=== PATIENT | female | born 1960 | race American Indian/Alaskan Native ===

== ENCOUNTER 2020-12-12 19:15 | Emergency (ER) | payer BC | END 2020-12-13 00:26 | disposition left against medical advice (07) | LOC: ED 19:15 | DX: S05.91XA Unspecified injury of right eye and orbit, initial encounter (principal); Z53.21 Procedure and treatment not carried out due to patient leaving prior to being seen by health care provider ==

== ENCOUNTER 2022-02-07 09:19 | Emergency (ER) | payer BC ==
--- NOTE | 2022-02-07 09:46 | Event Note ---
ED Screening Note Date of service: 02/07/22 Time: 09:40 ED Screening Note: This initial assessment/diagnostic orders/clinical plan/treatment(s) is/are subject to change based on patients health status, clinical progression and re- assessment by fellow clinical providers in the ED. Further treatment and workup at subsequent clinical providers discretion. Patient/guardian urged not to elope from the ED as their condition may be serious if not clinically assessed and managed. Patient found by granddaughter this morning on floor next to bed with bloodall over her head. Last seen yesterday morning. Hematoma right frontal and finger laceration. Initial orders include: My Active Orders 02/07/22 09:39 EKG (12 lead) Stat CT head/brain wo con Stat Complete Blood Count Auto Diff Stat Comprehensive Metabolic Panel Stat Drugs of Abuse Panel, Urine Stat Troponin T Stat 02/07/22 09:40 Tech to do EKG .once
--- NOTE | 2022-02-07 10:02 | Emergency Department Report ---
ED Fall HPI - General Chief Complaint: Head Injury Stated Complaint: HEAD INJURY / PSYCH EPISODE Time Seen by Provider: 02/07/22 09:50 Source: patient Mode of arrival: Ambulatory - History of Present Illness Initial Comments: 62-year-old -[place] he female with no significant past medical history reportedly fell this morning. Patient does not remember falling but blood was noted in her room in the bathroom. Patient unclear if she had any head trauma patient complains of left finger injury. MD Complaint: fall -: Sudden Fall From: standing When Fall Occurred: 1-3 hours LEAD [employer] Fall Witnessed: no Place Fall Occurred: home Loss of Consciousness: unsure Prolonged Down Time?: unclear Symptoms Prior to Fall: none Location - Extremities: Right: Hand Quality: sharp Context: alcohol use - Related Data Home Medications Medication Instructions Recorded Confirmed Last Taken Levothyroxine [Synthroid] 125 mcg PO QAM 02/15/15 04/06/20 04/05/20 09:00 atenoloL [Tenormin] 25 mg PO DAILY 02/15/15 04/06/20 04/05/20 09:00 cloNIDine [Catapres] 0.1 mg PO QHS 02/15/15 04/06/20 04/04/20 21:00 Previous Rx's Medication Instructions Recorded Last Taken Type Aspirin EC [Halfprin EC] 81 mg PO QDAY #30 tablet 04/08/20 Unknown Rx ISOSORBIDE MONOnitrate [Imdur ER] 30 mg PO QDAY #30 tablet 04/08/20 Unknown Rx Pravastatin [Pravachol] 40 mg PO QHS #30 tablet 04/08/20 Unknown Rx atenoloL [Tenormin] 50 mg PO QDAY #30 tablet 04/08/20 Unknown Rx lisinopriL [Zestril TAB] 2.5 mg PO QDAY #30 tablet 04/08/20 Unknown Rx chlordiazePOXIDE [Librium] 25 mg PO DAILY #6 cap 02/07/22 Unknown Rx Allergies Allergy/AdvReac Type Severity Reaction Status Date / Time Penicillins Allergy Vomiting Verified 02/15/15 10:33 ED Review of Systems ROS: Stated complaint: HEAD INJURY / PSYCH EPISODE Other details as noted in HPI Constitutional: denies: chills, fever Eyes: denies: eye pain, eye discharge, vision change ENT: denies: ear pain, throat pain Respiratory: denies: cough, shortness of breath, wheezing Cardiovascular: denies: chest pain, palpitations Endocrine: no symptoms reported Gastrointestinal: denies: abdominal pain, nausea, diarrhea Genitourinary: denies: urgency, dysuria, discharge Musculoskeletal: denies: back pain, joint swelling, arthralgia Skin: denies: rash, lesions Neurological: denies: headache, weakness, paresthesias Psychiatric: denies: anxiety, depression Hematological/Lymphatic: denies: easy bleeding, easy bruising ED Past Medical Hx - Past Medical History Hx Hypertension: Yes Hx Congestive Heart Failure: No Hx Diabetes: No Hx Asthma: Yes Hx COPD: No - Surgical History Additional Surgical History: bilateral rotator cuffs. 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 - Social History Smoking Status: Never Smoker - Medications Home Medications: Home Medications Medication Instructions Recorded Confirmed Last Taken Type Levothyroxine [Synthroid] 125 mcg PO QAM 02/15/15 04/06/20 04/05/20 09:00 Hi story atenoloL [Tenormin] 25 mg PO DAILY 02/15/15 04/06/20 04/05/20 09:00 History cloNIDine [Catapres] 0.1 mg PO QHS 02/15/15 04/06/20 04/04/20 21:00 History Aspirin EC [Halfprin EC] 81 mg PO QDAY #30 tablet 04/08/20 Unknown Rx ISOSORBIDE MONOnitrate [Imdur ER] 30 mg PO QDAY #30 tablet 04/08/20 Unknown Rx Pravastatin [Pravachol] 40 mg PO QHS #30 tablet 04/08/20 Unknown Rx atenoloL [Tenormin] 50 mg PO QDAY #30 tablet 04/08/20 Unknown Rx lisinopriL [Zestril TAB] 2.5 mg PO QDAY #30 tablet 04/08/20 Unknown Rx chlordiazePOXIDE [Librium] 25 mg PO DAILY #6 cap 02/07/22 Unknown Rx ED Physical Exam - General Limitations: No Limitations General appearance: alert, in no apparent distress - Head Head exam: Present: atraumatic, normocephalic - Eye Eye exam: Present: normal appearance, PERRL - ENT ENT exam: Present: normal exam, normal orophraynx, mucous membranes moist - Neck Neck exam: Present: normal inspection - Respiratory Respiratory exam: Present: normal lung sounds bilaterally. Absent: respiratory distress - Cardiovascular Cardiovascular Exam: Present: regular rate, normal rhythm. Absent: systolic murmur, diastolic murmur, rubs, gallop - GI/Abdominal GI/Abdominal exam: Present: soft, normal bowel sounds. Absent: distended, tenderness, guarding - Extremities Exam Extremities exam: Present: normal inspection - Back Exam Back exam: Present: normal inspection - Neurological Exam Neurological exam: Present: alert, oriented X3 - Psychiatric Psychiatric exam: Present: normal affect, normal mood - Skin Skin exam: Present: warm, dry, intact, normal color. Absent: rash ED Course Vital Signs 02/07/22 02/07/22 02/07/22 08:14 09:32 10:41 Temperature 97.9 F Pulse Rate 106 H 89 Respiratory 16 18 Rate Blood Pressure 137/88 Blood Pressure 130/95 136/95 [Left] O2 Sat by Pulse 98 99 Oximetry 02/07/22 02/07/22 02/07/22 10:43 10:45 11:51 Temperature Pulse Rate 105 H 70 Respiratory 16 14 Rate Blood Pressure 110/84 136/95 136/95 Blood Pressure [Left] O2 Sat by Pulse 78 L 100 99 Oximetry 02/07/22 02/07/22 12:04 12:05 Temperature Pulse Rate 66 Respiratory 18 18 Rate Blood Pressure Blood Pressure 142/65 [Left] O2 Sat by Pulse 99 99 Oximetry ED Medical Decision Making - Lab Data Result diagrams: 02/07/22 10:11 02/07/22 10:11 - EKG Data Rate: normal - Medical Decision Making Patient is awake and alert and oriented x3. Suspicion is patient have alcohol withdrawal seizures and should be admitted to the hospital I have advised patient of that fact, patient states she wants to go home patient awake and aler t oriented x3. Advised patient she will sign against medical vice to go home. She understands risks that she may have additional seizures, head trauma, even . Critical care attestation.: If time is entered above; I have spent that time in minutes in the direct care o f this critically ill patient, excluding procedure time. ED Disposition Clinical Impression: Headache Alcohol withdrawal Qualifiers: Complication of substance-induced condition: with unspecified complication Qualified Code(s): F10.939 - Alcohol use, unspecified with withdrawal, u nspecified Disposition: 07 LEFT AGAINST MEDICAL ADVICE Is pt being admited?: No Does the pt Need Aspirin: No Condition: Stable Instructions: Alcohol Abuse and Nutrition, Alcohol Abuse and Dependence Information, Teen, Alcohol Withdrawal Syndrome, [id number] Prescriptions: chlordiazePOXIDE [Librium] 25 mg PO DAILY #6 cap
--- NOTE | 2022-02-07 10:20 | Cat Scan Report ---
CT HEAD WITHOUT CONTRAST INDICATION / CLINICAL INFORMATION: unexplained fall with head injury in elderly. TECHNIQUE: Axial imaging performed from the skull apex through the skull base without the use of cont rast. Sagittal and coronal reformatted images. All CT scans at this location are performed using CT dose reduction for ALARA by means of automated exposure control. COMPARISON: 02/15/2015 FINDINGS: CEREBRAL PARENCHYMA: No significant abnormality. No acute territorial infarct. HEMORRHAGE: None. EXTRA-AXIAL SPACES: Normal in size and morphology for the patient's age. VENTRICULAR SYSTEM: Normal in size and morphology for the patient's age. MIDLINE SHIFT OR HERNIATION: None. CEREBELLUM / BRAINSTEM: No significant abnormality. CALVARIUM: No significant abnormality. ORBITS: Normal as visualized. PARANASAL SINUSES / MASTOID AIR CELLS: Normal as visualized. SOFT TISSUES of HEAD: No significant abnormality. ADDITIONAL FINDINGS: None. IMPRESSION: No acute intracranial abnormality. Signer Name: Ganga Rosales Jr, MD Signed: 02/07/2022 10:15 AM Workstation Name: [id number]
[2022-02-07] MEDS ORDERED: LORazepam 2 MG/ML VIAL IM STA (11:17)
[2022-02-07 11:53] LABS: Basophils % (Auto) 0.8 % (0.0-1.8); Hematocrit 37.7 % (30.3-42.9); Hemoglobin 11.9 gm/dl (10.1-14.3); Lymphocytes # (Auto) 1.9 K/mm3 (1.2-5.4); Lymphocytes % (Auto) 29.3 % (13.4-35.0); Mean Corpuscular HGB Conc 32 % (30-34); Mean Corpuscular Volume 97 fl (79-97); Monocytes # (Auto) 0.4 K/mm3 (0.0-0.8); Monocytes % (Auto) 6.2 % (0.0-7.3); Platelet Count 229 K/mm3 (140-440); Red Blood Count 3.88 M/mm3 (3.65-5.03); Red Cell Distribution Width 14.7 % (13.2-15.2)
[2022-02-07 11:55] LABS: Amphetamine Screen,Urine Negative; Benzodiazepines Screen,Urine Negative; Cocaine Screen,Urine Negative; Methadone Screen,Urine Negative; Opiate Screen,Urine Negative
[2022-02-07 12:05] VITALS: BP 142/65
[2022-02-07 12:17] LABS: Alanine Aminotransferase 17 units/L (7-56); Albumin 4.5 g/dL (3.9-5); Blood Urea Nitrogen 5 mg/dL (7-17); Calcium 8.6 mg/dL (8.4-10.2); Hemolysis Index 3
[2022-02-07 12:18] LABS: Cannabinoid Screen,Urine Positive
[2022-02-07 12:19] LABS: BUN/Creatinine Ratio 8
== END 2022-02-07 13:41 | disposition left against medical advice (07) ==
LOC: ED 09:19
DX: R51.9 Headache, unspecified (principal); F10.239 Alcohol dependence with withdrawal, unspecified; Z88.0 Allergy status to penicillin; I10 Essential (primary) hypertension; J45.909 Unspecified asthma, uncomplicated; Z79.899 Other long term (current) drug therapy
CPT/HCPCS: 36415; 70450; 80053; 80307; 80320; 84484; 85025; 99284; G0480; J2060